=== PATIENT | male | born 1935 | race Caucasian/White ===

== ENCOUNTER 2018-02-21 17:16 | Inpatient (IN) | payer OTHER, MEDICARE ==
[~2018-02-21] VITALS: Ht 175.3 cm; Wt 71.5 kg
--- NOTE | 2018-02-21 17:28 | ED AMS/SEIZURE/WEAK/DIZZY ---
History of Present Illness General Chief Complaint: Altered Mental Status Stated Complaint: BIBA UNRESPONSIVE Source: patient, EMS Exam Limitations: clinical condition Vital Signs & Intake/Output Vital Signs & Intake/Output Vital Signs Date Time Temp Pulse Resp B/P B/P Pulse O2 O2 Flow FiO2 Mean Ox Delivery Rate 02/21 2121 100 Non 10L ReBreather 02/22 2108 98.9 110 22 140/78 02/22 2020 110 103/69 02/21 1945 104 20 111/61 94 Non 100% ReBreather 02/21 1922 98.8 105 22 109/67 90 Nasal 4.0L Cannula 02/22 1920 94 Nasal 3.0L Cannula 02/21 182 103.3 02/21 182 103.3 106 22 115/61 92 Nasal 3.0L Cannula 02/21 172 104.9 02/21 172 92 Non 10L ReBreather 02/22 1720 104.9 118 24 83/51 92 Non 10L ReBreather Triage Nurses Notes Reviewed? 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 The patient is obtunded and unable to give any history. It is unclear when the symptoms began. (Lavern TIERNEY,[facility]) Allergies Coded Allergies: hydrochlorothiazide (UNKNOWN REACTION - PER 02/21/18) Reconcile Medications Acetaminophen 500 MG TABLET 1 TAB PO BID PAIN (Reported) Acetaminophen 325 MG TABLET 2 TAB PO Q4H PRN PAIN/TEMP>100 (Reported) Acetaminophen (Acephen) 650 MG SUPP.RECT 1 SUPP GA Q4H PRN PAIN/TEMP>100 ( Reported) Amlodipine Besylate 5 MG TABLET 1 TAB PO DAILY BP (Reported) Aspirin (Ecotrin*) 81 MG TABLET.DR 1 TAB PO DAILY HEART/BLOOD (Reported) Bisacodyl 10 MG SUPP.RECT 1 SUP RC AD PRN CONSTIPATION (Reported) Docusate Sodium (Colace) 100 MG CAPSULE 1 CAP PO DAILY STOOL SOFTENER ( Reported) Ergocalciferol (Vitamin D2) (Vitamin D2) 50,000 UNIT CAPSULE 1 CAP PO Q30D SUPPLEMENT (Reported) Escitalopram Oxalate (Lexapro) 10 MG TABLET 1 TAB PO DAILY MENTAL HEALTH ( Reported) Escitalopram Oxalate (Lexapro) 5 MG TABLET 1 TAB PO DAILY MENTAL HEALTH ( Reported) Guaifenesin (Liquituss GG) 200 MG/5 ML LIQUID 5 ML PO Q4H PRN COUGH/WHEEZE ( Reported) Ipratropium/Albuterol Sulfate (Iprat-Albut 0.5-3(2.5) MG/3 Ml) 0.5 MG-3 MG (2.5 MG BASE)/3 ML AMPUL.NEB 1 VIAL INH Q4H RESP. (Reported) Ipratropium/Albuterol Sulfate (Iprat-Albut 0.5-3(2.5) MG/3 Ml) 0.5 MG-3 MG (2.5 MG BASE)/3 ML AMPUL.NEB 1 VIAL INH Q6H PRN WHEEZING (Reported) Lactulose 10 GRAM/15 ML SOLUTION 30 ML PO DAILY UNKNOWN (Reported) Lisinopril 10 MG TABLET 1 TAB PO DAILY BP (Reported) Magnesium Hydroxide (Milk Of Magnesia) 400 MG/5 ML ORAL.SUSP 30 ML PO DAILY PRN CONSTIPATION (Reported) Multiple Vitamin (Multivitamins) 1 EACH TABLET 1 TAB PO DAILY SUPPLEMENT ( Reported) Na Phos,M-B/Na Phos,Di-Ba (Fleet Enema) 19 GRAM-7 GRAM/118 ML ENEMA 1 E RC DAILY PRN CONSTIPATION (Reported) Polyvinyl Alcohol (Artificial Tears) 1.4 % DROPS 2 DROP OU DAILY BOTH EYES ( Reported) Simvastatin (Zocor*) 10 MG TABLET 1 TAB PO QPM CHOLESTEROL (Reported) (Kathleen TIERNEY,Enrique) Past History Travel History Traveled to [place] past 21 day No Medical History Any Pertinent Medical History? see below for history Neurological: dementia Cardiovascular: hypertension, hyperlipidemia Gastrointestinal: constipation Psychiatric: depression Cancer(s): SQUAMOUS CELL Tetanus Vaccine: 11/21/15 Surgical History Surgical History: N Psychosocial History What is your primary language Surinamese Family History Hx Contributory? No (Lavern TIERNEY,Enedina) Review of Systems Review of Systems Constitutional: Reports: diaphoresis. Denies: chills, fever. EENTM: Reports: no symptoms. Respiratory: Reports: short of breath. Cardiovascular: Reports: chest pain. GI: Reports: no symptoms. Genitourinary: Reports: no symptoms. Musculoskeletal: Reports: back pain. Skin: Reports: no symptoms. Neurological/Psychological: Reports: no symptoms. Hematologic/Endocrine: Reports: no symptoms. Immunologic/Allergic: Reports: no symptoms. All Other Systems: Reviewed and Negative (Enedina Puckett MD) Physical Exam Physical Exam General Appearance: well developed/nourished, alert, awake, moderate distress, severe distress, obese Head: atraumatic, normal appearance Eyes: Bilateral: PERRL. Ears, Nose, Throat: hearing grossly normal Neck: normal inspection, supple, full range of motion Respiratory: normal breath sounds, chest non-tender, no respiratory distress Cardiovascular: regular rate/rhythm, normal peripheral pulses Peripheral Pulses: 2+ radial (R) Extremities: normal range of motion Neurologic/Psych: no motor/sensory deficits, awake, alert, oriented x 3 Skin: intact, normal color, warm/dry Core Measures ACS in differential dx? Yes CVA/TIA Diagnosis No Sepsis Present: Yes Sepsis Focused Exam Completed? Yes (Enedina Puckett MD) ED Sepsis Exam Date of Focused Sepsis Exam: 02/21/18 Time of Focused Sepsis Exam: 1915 Sepsis Cardiac Exam: Tachycardia Sepsis Resp Exam: CTA Sepsis Cap Refill Exam: >2 sec Sepsis Peripheral Pulse Exam: Weak Sepsis Peripheral Pulse Location: Radial Sepsis Skin Color Exam: Pale Skin Temp/Moisture Exam: Warm/Excessively Dry (Enedina Puckett MD) Progress Differential Diagnosis: AMI, UNSTABLE ANGINA, Plan of Care: Orders Procedure Date/time Status Nothing by Mouth 02/22 B Active CBC WITHOUT DIFFERENTIAL 02/22 0600 Active BASIC ELECTROLYTES PLUS BUN&CR 02/22 06 Active Intake & Output 02/21 2206 Active Patient Data 02/21 2105 Active Code Status 02/21 2041 Active LACTIC ACID 02/21 2031 Complete Admit to inpatient 02/21 1942 Active Sousa, Insertion/Removal/Asses 02/21 191 Active CULTURE,URINE 02/21 191 Active EKG 02/21 1732 Active Telemetry/Fuels Sales Representative 02/21 1731 Active Straight Cath 02/21 1731 Active BLOOD CULTURE 02/21 1731 Active URINALYSIS 02/21 1731 Complete TROPONIN LEVEL 02/21 1731 Complete LACTIC ACID 02/21 1731 Complete COMPREHENSIVE METABOLIC PANEL 02/21 1731 Complete CBC WITHOUT DIFFERENTIAL 02/21 1731 Complete TRC EVALUATION (GEN) 02/21 UNK Active OXYGEN SETUP (GEN) 02/21 UNK Active Vital Signs 02/21 UNK Active Current Medications Sig/Nora Start time Last Medication Dose Stop Time Status Admin Ceftazidime 1,000 MG Q12 02/22 1000 UNVr (Fortaz) Vancomycin HCl 1,000 MG DAILY 02/22 1000 UNir Dextrose/Water 250 ML (D5W) Lactated Ringer's 1,000 ML ONCE ONE 02/21 2215 UNVr (Lactated Ringers) 02/22 1134 Laboratory Tests 02/21/182116: Lactic Acid 2.2 H 02/21/181823: Urinalysis MOD H, Urine Color BROWN H, Urine Clarity TURBD H, Urine pH 5.5, Ur Specific [place] 1.025, Urine Protein 100 H, Urine Ketones TRACE H, Urine Nitrite POS H, Urine Bilirubin NEG@ICTO, Urine Urobilinogen 2.0 H, Ur Leukocyte Esterase LARGE H, Ur Microscopic SEDIMENT EXAMINED, Urine RBC 3-5, Urine WBC > 75 H, Urine Bacteria MANY H, Urine Hemoglobin LARGE H, Urine Glucose NEG 02/21/181819: Anion Gap 15, Estimated GFR 32 L, BUN/Creatinine Ratio 15.5, Glucose 135 H, Lactic Acid 3.4 H, Calcium 8.4, Total Bilirubin 1.5 H, AST 29, ALT 20 L, Alkaline Phosphatase 64, Troponin I 0.69 *H, Total Protein 6.0 L, Albumin 2.9 L, Globulin 3.1, Albumin/Globulin Ratio 0.9 L, CBC w Diff MAN DIFF ORDERED, RBC 4.66 L, MCV 97.3 H, MCH 32.5 H, MCHC 33.5, RDW 16.9 H, MPV 9.4, Gran % 93.9 H, Lymphocytes % 3.0 L, Monocytes % 3.1, Eosinophils % 0, Basophils % 0, Absolute Granulocytes 27.7 H, Segmented Neutrophils 90 H, Band Neutrophils 2, Absolute Lymphocytes 0.9 L, Lymphocytes 5 L, Monocytes 3, Absolute Monocytes 0.9 H, Absolute Eosinophils 0, Absolute Basophils 0, Platelet Estimate ADEQUATE , Anisocytosis 1+ Microbiology 02/21 1917 URINE ROUT: Urine Culture - ORD 02/21 183 BLOOD: Blood Culture - RECD 02/22 1820 BLOOD: Blood Culture - RECD CODE STATUS and wishes discussed with the POA who is the patient's brother. At this point the brother is okay with IV fluids and antibiotics and pressors as needed. I informed him that we would call him should we need pressors or anything further. XANDER BROTHER - CELL [phone] Diagnostic Imaging: Viewed by Me: Radiology Read, CT Scan. Discussed w/RAD: Radiology Read, CT Scan. CXR Impression: PATIENT: TYE HUTCHINS PRESENT AGE: 82 PATIENT ACCOUNT NO: [id number] : 36 LOCATION: [facility] ORDERING PHYSICIAN: Enedina Puckett MD SERVICE DATE: 02/21/18 EXAM TYPE: RAD - XRY -PORTABLE CHEST XRAY EXAMINATION: XR PORTABLE CHEST CLINICAL INFORMATION: Fever. COMPARISON: 01/15/2009 TECHNIQUE: Portable frontal view of the chest was obtained. FINDINGS: No significant abnormality is noted involving the heart, lungs, mediastinum, bony thorax or soft tissues. IMPRESSION: No active chest disease. DICTATED BY: David Castro MD DATE/TIME DICTATED:02/21/181824 NURSING STUDENT:JULIANNA DATE/TIME TRANSCRIBED:02/21/181824 CONFIDENTIAL, DO NOT COPY WITHOUT APPROPRIATE AUTHORIZATION. <Electronically signed in Other Vendor System> SIGNED BY: David Castro MD 02/21/181828 Initial ED EKG: RBBB, LAFB Rhythm Strip: sinus tachycardia Hand-Off Endorsed To: Enrique Wang MD Endorsed Time: 1913 Pending: CT (AND ADMISSION) (Enedina Puckett MD) Radiology Impression: Bibasilar extensive pneumonitis partially imaged. Nonobstructing bilateral renal calculi. High density metallic focus within the cecum as above. Correlate with surgical history. Multiple lesions within both renal cortices some which may be cystic. Recommend elective ultrasound. Comments: Discussed with brother Xander diagnosis, prognosis. He reports his brother has no quality of life with illness, dementia. No intubation, pressors, CPR. IVF, antibiotics, supplemental oxygen and supportive care for comfort. (Enrique Wang MD) Departure Departure Disposition: STILL A PATIENT Condition: Stable Referrals: Nelly Zimmerman MD (PCP/Family) Departure Forms: Customer Survey General Discharge Information (Enedina Puckett MD) Departure Time of Disposition: 2005 Clinical Impression Primary Impression: Sepsis Secondary Impressions: Hypernatremia, Lactic acidosis, Pneumonia, UTI (urinary tract infection) Admission Note Spoke With: Mayra Delaney MD Documentation of Exam: Documentation of any treatments & extenuating circumstances including Concerns Regarding Discharge (functional status, medication knowledge or non-compliance, living conditions, etc.) that warrant an admission rather than observation: supplemental oxygen IV Fluids serial lab exam follow cultures IV antibiotics continuing care discharge planning (Enrique Wang MD) Critical Care Note Critical Care Note Critical Care Time: 30-74 min (45) (Enrique Wang MD)
--- NOTE | 2018-02-21 18:29 | RADIOLOGY REPORT ---
EXAMINATION: XR PORTABLE CHEST CLINICAL INFORMATION: Fever. COMPARISON: 01/15/2009 TECHNIQUE: Portable frontal view of the chest was obtained. FINDINGS: No significant abnormality is noted involving the heart, lungs, mediastinum, bony thorax or soft tissues. IMPRESSION: No active chest disease.
[2018-02-21 18:36] LABS: ABSOLUTE BASOPHIL COUNT 0 /CUMM (0.0-0.2); ABSOLUTE EOSINOPHIL COUNT 0 /CUMM (0.0-0.7); ABSOLUTE GRANULOCYTE CT 27.7 /CUMM (1.4-6.5); ABSOLUTE LYMPH COUNT 0.9 /CUMM (1.2-3.4); ABSOLUTE MONOCYTE COUNT 0.9 /CUMM (0.10-0.60); BASOPHIL % 0 % (0.0-2.0); EOSINOPHIL % 0 % (0-5); GRANULOCYTE % 93.9 % (42.2-75.2); HEMATOCRIT 45.4 % (42-52); MEAN CORPUSCULAR HGB 32.5 PG (27.0-31.0); MEAN CORPUSCULAR HGB CONC 33.5 G/DL (33.0-37.0); MEAN CORPUSCULAR VOLUME 97.3 FL (80.0-94.0); MEAN PLATELET VOLUME 9.4 FL (7.4-10.4); PLATELET COUNT 301 /CUMM (130-400); RBC DISTRIBUTION WIDTH 16.9 % (11.5-14.5); RED BLOOD CELL CT 4.66 /CUMM (4.70-6.10)
[2018-02-21 18:37] LABS: WHITE BLOOD CELL COUNT 29.5 /CUMM (4.8-10.8)
[2018-02-21] MEDS ORDERED: AMLODIPINE BESYL5 M1 PO (19:27)
[2018-02-21] MEDS ORDERED: VITAMIN D250000 UNIT PO (19:27)
[2018-02-21] MEDS ORDERED: COLACE100 M1 PO (19:28)
[2018-02-21] MEDS ORDERED: ASPIRIN EC81 M1 PO (19:28)
[2018-02-21] MEDS ORDERED: LEXAPRO10 M1 PO (19:28)
[2018-02-21] MEDS ORDERED: LEXAPRO5 M1 PO (19:31)
[2018-02-21] MEDS ORDERED: LACTULOSE10 GM/152 PO (19:33)
[2018-02-21] MEDS ORDERED: LISINOPRIL10 M1 PO (19:36)
[2018-02-21] MEDS ORDERED: MULTIVITAMINS1 EAC9 PO (19:37)
[2018-02-21] MEDS ORDERED: ARTIFICIAL TEAR15 M8 OU (19:38)
--- NOTE | 2018-02-21 19:39 | CT SCAN REPORT ---
EXAMINATION: CT ABDOMEN AND PELVIS WITHOUT CONTRAST CLINICAL INFORMATION: Fever. Sepsis. COMPARISON: None TECHNIQUE: Multidetector volumetric imaging was performed from the superior aspect of the liver through the pubic symphysis. Sagittal and coronal reformatted images were obtained on the technologist's workstation. DLP: 769 mGy-cm FINDINGS: LUNG BASES: Extensive consolidation right greater than left at the lung bases consistent pneumonitis. No parapneumonic effusion. Severe coronary atherosclerosis. LIVER, GALLBLADDER, AND BILIARY TREE: The liver is normal in size, shape, and attenuation. No focal hepatic lesion or biliary ductal dilatation is present. The gallbladder is unremarkable with no evidence of radiopaque gallstones, gallbladder wall thickening, or obvious pericholecystic inflammatory changes. PANCREAS: Unremarkable. SPLEEN: Granuloma granuloma noted. ADRENAL GLANDS: Unremarkable. KIDNEYS AND URETERS: There is a minimally obstructing stone within the right renal pelvis measuring approximately 9 mm. Multiple calyceal stone in the left which is nonobstructive enlarged measuring up to 8 mm lower pole calyx. There are multiple rounded lesions within both renal cortices. These appear to be cystic some of them are too small to characterize. Recommend elective ultrasound for further characterization. No perinephric abnormality. BLADDER: Sousa catheter in place decompressing the bladder. GASTROINTESTINAL TRACT: High density within the cecum consistent with previous probable surgery. Correlate with surgical history. Foreign body less likely.. No acute inflammatory changes. No free air. ABDOMINAL WALL: No significant hernia is appreciated. LYMPH NODES: Normal. VASCULAR: Unremarkable. PELVIC VISCERA: Unremarkable. OSSEOUS STRUCTURES: Unremarkable. IMPRESSION: Bibasilar extensive pneumonitis partially imaged. Nonobstructing bilateral renal calculi. High density metallic focus within the cecum as above. Correlate with surgical history. Multiple lesions within both renal cortices some which may be cystic. Recommend elective ultrasound.
[2018-02-21] MEDS ORDERED: ACETAMINOPHEN500 M4 PO (19:41)
[2018-02-21] MEDS ORDERED: ZOCOR10 M1 PO (19:43)
[2018-02-21] MEDS ORDERED: IPRAT-ALBUT 0.5-3 ML INH ×2 (19:43→19:49)
[2018-02-21] MEDS ORDERED: MILK OF MA400 MG/52 PO (19:46)
[2018-02-21] MEDS ORDERED: BISACODYL10 M1 RC (19:47)
[2018-02-21] MEDS ORDERED: FLEET ENEMA133 ML RC (19:48)
[2018-02-21] MEDS ORDERED: ACETAMINOPHEN325 M2 PO (19:51)
[2018-02-21] MEDS ORDERED: ACEPHEN650 M1 PR (19:52)
[2018-02-21] MEDS ORDERED: LIQUITUSS200 MG/5 M PO (19:53)
--- NOTE | 2018-02-21 20:41 | History & Physical ---
Mick TIERNEY,Blaine 02/21/182039: General Information and HPI MD Statement: I have seen and personally examined TYE HUTCHINS and documented this H&P. The patient is a 82 year old M who presented with a patient stated chief complaint of [fever, unresponsiveness, hypotension]. Source of Information: family, old records Exam Limitations: unable to give history History of Present Illness: Patient is an 82-year-old male with a PMH significant for B-cell lymphoma, HTN, dementia, depression, anxiety, HLD, chest wall mass recently excised approximately 2 weeks ago with sutures still in place diagnosis unknown who was brought in by ambulance from [place] after being found to be febrile, hypotensive and nonresponsive. History was obtained by patient's brother, who is the POA, at bedside. Approximately one week ago patient was noted to be febrile was diagnosed with pneumonia. Since that time the brother reports that she did not follow-up and he is unaware of what treatment he received. Today and nurse noted that the patient was febrile, unresponsive to verbal stimuli and hypotensive at which point the scope. Review systems is unobtainable as patient was unarousable Allergies/Medications Allergies: Coded Allergies: hydrochlorothiazide (UNKNOWN REACTION - PER 02/21/18) Home Med list Acetaminophen 500 MG TABLET 1 TAB PO BID PAIN (Reported) Acetaminophen 325 MG TABLET 2 TAB PO Q4H PRN PAIN/TEMP>100 (Reported) Acetaminophen (Acephen) 650 MG SUPP.RECT 1 SUPP OR Q4H PRN PAIN/TEMP>100 ( Reported) Amlodipine Besylate 5 MG TABLET 1 TAB PO DAILY BP (Reported) Aspirin (Ecotrin*) 81 MG TABLET.DR 1 TAB PO DAILY HEART/BLOOD (Reported) Bisacodyl 10 MG SUPP.RECT 1 SUP RC AD PRN CONSTIPATION (Reported) Docusate Sodium (Colace) 100 MG CAPSULE 1 CAP PO DAILY STOOL SOFTENER ( Reported) Ergocalciferol (Vitamin D2) (Vitamin D2) 50,000 UNIT CAPSULE 1 CAP PO Q30D SUPPLEMENT (Reported) Escitalopram Oxalate (Lexapro) 10 MG TABLET 1 TAB PO DAILY MENTAL HEALTH ( Reported) Escitalopram Oxalate (Lexapro) 5 MG TABLET 1 TAB PO DAILY MENTAL HEALTH ( Reported) Guaifenesin (Liquituss GG) 200 MG/5 ML LIQUID 5 ML PO Q4H PRN COUGH/WHEEZE ( Reported) Ipratropium/Albuterol Sulfate (Iprat-Albut 0.5-3(2.5) MG/3 Ml) 0.5 MG-3 MG (2.5 MG BASE)/3 ML AMPUL.NEB 1 VIAL INH Q4H RESP. (Reported) Ipratropium/Albuterol Sulfate (Iprat-Albut 0.5-3(2.5) MG/3 Ml) 0.5 MG-3 MG (2.5 MG BASE)/3 ML AMPUL.NEB 1 VIAL INH Q6H PRN WHEEZING (Reported) Lactulose 10 GRAM/15 ML SOLUTION 30 ML PO DAILY UNKNOWN (Reported) Lisinopril 10 MG TABLET 1 TAB PO DAILY BP (Reported) Magnesium Hydroxide (Milk Of Magnesia) 400 MG/5 ML ORAL.SUSP 30 ML PO DAILY PRN CONSTIPATION (Reported) Multiple Vitamin (Multivitamins) 1 EACH TABLET 1 TAB PO DAILY SUPPLEMENT ( Reported) Na Phos,M-B/Na Phos,Di-Ba (Fleet Enema) 19 GRAM-7 GRAM/118 ML ENEMA 1 E RC DAILY PRN CONSTIPATION (Reported) Polyvinyl Alcohol (Artificial Tears) 1.4 % DROPS 2 DROP OU DAILY BOTH EYES ( Reported) Simvastatin (Zocor*) 10 MG TABLET 1 TAB PO QPM CHOLESTEROL (Reported) Past History Travel History Traveled to [place] past 21 day No Medical History Neurological: dementia Cardiovascular: hypertension, hyperlipidemia Gastrointestinal: constipation Psychiatric: depression Cancer(s): SQUAMOUS CELL, B cell lymphoma Tetanus Vaccine: 11/21/15 Surgical History Surgical History: N Past Family/Social History Family History Relations & Conditions if any Relation not specified for: *No pertinent family history Psychosocial History Where do you live? Extended [facility] Facility Power of Water/Wastewater Project Engineer/HCP? yes Functional Ability ADLs Needs Assist: dressing, eating, toileting, bathing. Review of Systems Review of Systems Constitutional: Reports: see HPI. Exam & Diagnostic Data Last 24 Hrs of Vital Signs/I&O Vital Signs Date Time Temp Pulse Resp B/P B/P Pulse O2 O2 Flow FiO2 Mean Ox Delivery Rate 02/22 2328 96.9 104 24 142/60 94 Non ReBreather 02/21 2121 100 Non 10L ReBreather 02/22 2108 98.9 110 22 140/78 02/22 2020 110 103/69 02/21 1945 104 20 111/61 94 Non 100% ReBreather 02/21 1922 98.8 105 22 109/67 90 Nasal 4.0L Cannula 02/22 1920 94 Nasal 3.0L Cannula 02/22 1820 103.3 02/22 1820 103.3 106 22 115/61 92 Nasal 3.0L Cannula 02/22 1720 104.9 02/22 1720 92 Non 10L ReBreather 02/22 1720 104.9 118 24 83/51 92 Non 10L ReBreather Physical Exam General Appearance No Acute Distress Skin Temp/Moisture Exam: Cool/Diaphoretic Sepsis Skin Exam (color): Pale HEENT Atraumatic Cardiovascular Normal S1, Normal S2, linear procedural wound with sutures in place on upper L chest, tachycardic Lungs diffuse rhonchi Abdomen Normal Bowel Sounds, Soft Extremities No Clubbing, No Cyanosis, No Edema Vascular poor distal pulses of LEs, 2+ radial pulses Sepsis Peripheral Pulse Location: Radial Sepsis Peripheral Pulse Exam: Weak Sepsis Cap Refill Exam: <2 Sec Last 24 Hrs of Labs/Jamie: Laboratory Tests 02/21/182116: Lactic Acid 2.2 H 02/21/181823: Urinalysis MOD H, Urine Color BROWN H, Urine Clarity TURBD H, Urine pH 5.5, Ur Specific [place] 1.025, Urine Protein 100 H, Urine Ketones TRACE H, Urine Nitrite POS H, Urine Bilirubin NEG@ICTO, Urine Urobilinogen 2.0 H, Ur Leukocyte Esterase LARGE H, Ur Microscopic SEDIMENT EXAMINED, Urine RBC 3-5, Urine WBC > 75 H, Urine Bacteria MANY H, Urine Hemoglobin LARGE H, Urine Glucose NEG 02/21/181819: Anion Gap 15, Estimated GFR 32 L, BUN/Creatinine Ratio 15.5, Glucose 135 H, Lactic Acid 3.4 H, Calcium 8.4, Total Bilirubin 1.5 H, AST 29, ALT 20 L, Alkaline Phosphatase 64, Troponin I 0.69 *H, Total Protein 6.0 L, Albumin 2.9 L, Globulin 3.1, Albumin/Globulin Ratio 0.9 L, CBC w Diff MAN DIFF ORDERED, RBC 4.66 L, MCV 97.3 H, MCH 32.5 H, MCHC 33.5, RDW 16.9 H, MPV 9.4, Gran % 93.9 H, Lymphocytes % 3.0 L, Monocytes % 3.1, Eosinophils % 0, Basophils % 0, Absolute Granulocytes 27.7 H, Segmented Neutrophils 90 H, Band Neutrophils 2, Absolute Lymphocytes 0.9 L, Lymphocytes 5 L, Monocytes 3, Absolute Monocytes 0.9 H, Absolute Eosinophils 0, Absolute Basophils 0, Platelet Estimate ADEQUATE , Anisocytosis 1+ Microbiology 02/21 1917 URINE ROUT: Urine Culture - ORD 02/22 1836 BLOOD: Blood Culture - RECD 02/22 1820 BLOOD: Blood Culture - RECD Diagnostic Data EKG Results Sinus tachycardia with new RBBB and LAFB, HR [address]-T changes CXR Results FINDINGS: No significant abnormality is noted involving the heart, lungs, mediastinum, bony thorax or soft tissues. IMPRESSION: No active chest disease. Other Results CT abd/pelvis w/o IV contrast LUNG BASES: Extensive consolidation right greater than left at the lung bases consistent pneumonitis. No parapneumonic effusion. Severe coronary atherosclerosis. LIVER, GALLBLADDER, AND BILIARY TREE: The liver is normal in size, shape, and attenuation. No focal hepatic lesion or biliary ductal dilatation is present. The gallbladder is unremarkable with no evidence of radiopaque gallstones, gallbladder wall thickening, or obvious pericholecystic inflammatory changes. PANCREAS: Unremarkable. SPLEEN: Granuloma granuloma noted. ADRENAL GLANDS: Unremarkable. KIDNEYS AND URETERS: There is a minimally obstructing stone within the right renal pelvis measuring approximately 9 mm. Multiple calyceal stone in the left which is nonobstructive enlarged measuring up to 8 mm lower pole calyx. There are multiple rounded lesions within both renal cortices. These appear to be cystic some of them are too small to characterize. Recommend elective ultrasound for further characterization. No perinephric abnormality. BLADDER: Sousa catheter in place decompressing the bladder. GASTROINTESTINAL TRACT: High density within the cecum consistent with previous probable surgery. Correlate with surgical history. Foreign body less likely.. No acute inflammatory changes. No free air. ABDOMINAL WALL: No significant hernia is appreciated. LYMPH NODES: Normal. VASCULAR: Unremarkable. PELVIC VISCERA: Unremarkable. OSSEOUS STRUCTURES: Unremarkable. IMPRESSION: Bibasilar extensive pneumonitis partially imaged. Nonobstructing bilateral renal calculi. High density metallic focus within the cecum as above. Correlate with surgical history. Multiple lesions within both renal cortices some which may be cystic. Recommend elective ultrasound. Assessment/Plan Assessment: Patient is an 82-year-old male with a PMH significant for B-cell lymphoma, HTN, dementia, depression, anxiety, HLD, chest wall mass recently excised approximately 2 weeks ago with sutures still in place diagnosis unknown who was brought in by ambulance from [place] after being found to be febrile, hypotensive and nonresponsive. A detailed discussion was had at bedside with the patient's brother/POA about goals of care, and it was decided that for now the patient will be comfort measures only, with further discussion in the morning about hospice. He agreed to begin treatment with IV antibiotics and IV fluids however does not want aggressive measures such as central line placement, pressors. VS on admission: T1 04.9, P118, RR 24, BP 83/51, pulse ox 92% on 10 L nonrebreather mask Labs significant for leukocytosis with bandemia, hypernatremia, hyperchloremia, elevated BUN/creatinine, lactic acidosis, elevated T bili, low protein, albumin, elevated troponin, UA indicative of UTI Problem list #Sepsis secondary to urologic origin or possible pneumonia #Elevated troponins, demand ischemia versus FL #Hypernatremia, possibly secondary to volume depletion #CHARISSE, annelise prerenal azotemia #Chronic medical problems Plan -Admit to telemetry -Comfort measures only -Continue IV vancomycin and Ceftazidime -Follow-up blood and urine cultures -Discussion with family in a.m. 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 Sepsis 2. Pneumonia 3. Lactic acidosis 4. UTI (urinary tract infection) 5. Hypernatremia Core Measures/Misc (08/13) Acute Coronary Syndrome ACS Diagnosis: No Congestive Heart Failure Congestive Heart Failure Diagnosis No Cerebrovascular Accident CVA/TIA Diagnosis: No VTE (View Protocol) VTE Risk Factors Age>40 No Mechanical VTE Prophylaxis d/t N/A MechProphylax Ordered No VTE Pharm Prophylaxis d/t Other (patient is comfort measures) Sepsis (View protocol) Sepsis Present: Yes Amando Reese 02/21/18 2258: Resident Review Statement Resident Statement: examined this patient, discussed with process engineering intern, agreed with process engineering intern, discussed with family, reviewed EMR data (avail), reviewed images Other Findings: 82 year old nonverbal, nonambulatory gentleman [facility] significant for hypertension, severe dementia, 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 Sent from facility for high-grade temperature and low blood pressure. History was obtained from his Brother who is his conservator and from nursing staff at [place]. Apparently patient was treated for pneumonia about one week ago. Unable to obtain review of systems. Apparently about 2 weeks ago patient had ?excisional biopsy of the chest wall mass. Sutures in left upper chest noted with minimal discharge. Vitals MAXIMUM TEMPERATURE 104.9, heart rate 110-118, blood pressure 83/51-->140 /78 Examination as above. Labs significant for WBC 29.5 left shift with bandemia of 2, sodium 156, potassium 3.5, chloride 119, bicarbonate 22, anion gap 15, BUN 31, creatinine 2.0, T bili 1.5, AST 29 ALT 20, ALP 64, troponin 0.69, lactic acid 3.4-->2.2 Chest x-ray: No significant abnormality is noted involving the heart, lungs, mediastinum, bony thorax or soft tissues. CT abdomen and pelvis: Bibasilar extensive pneumonitis partially imaged.Nonobstructing bilateral renal calculi.High density metallic focus within the cecum as above. Correlate with surgical history.Multiple lesions within both renal cortices some which may be cystic. Assessment: Sepsis secondary to HCAP with positive trop likely secondary to type II demand ischemia. CHARISSE in the setting of dehydration Problem list: Sepsis Acute hypoxic respiratory failure Positive troponin hypernatremia CHARISSE Plan: Admit to general medicine floor, vitals per protocol Keep nothing by mouth, Ringer lactate at 75 mL currently on nonrebreather As he is comfort measures will not trend troponin EKG or lactic acid Follow-up CBC and BEP in the morning Extensive discussion with conservator Xander Pena who is his brother [phone number [phone]]. At this time family does not wish any aggressive measures including,intubation chest compressions, central lines or any surgical intervention. They would like to treat with IV antibiotics for now. Would like to keep him comfort measures with hospice consult in the morning. Continue with vancomycin and ceftriaxone We'll hold his antihypertensives, DVT prophylaxis: Alps CODE STATUS :Comfort measures Mayra Delaney 02/22/18 0027: Attending MD Review Statement Attending Statement Attending MD Statement: examined this patient, discuss w/resident/PA/DESIZING MACHINE OPERATOR HEAD END, agreed w/resident/PA/DESIZING MACHINE OPERATOR HEAD END, reviewed EMR data (avail), reviewed images, amended to note Attending Assessment/Plan: CC: Altered mental status PMH: Dementia, major depression, HTN, diffuse B-cell lymphoma, dysphagia, recent skin biopsy for suspected skin cancer History is obtained from patient's chart, alf, patient's conservator. Patient is nonverbal and nonambulatory at baseline, resident of [facility]. According to the facility patient was found unresponsive at the change of shift. Patient was being treated with antibiotics for suspected pneumonia at the facility diagnosed on x-ray. Patient was hypotensive and tachycardic when he was up-to- date in ECF. No other history is available. Vitals: Rectal temperature 104.9, pulse 118, RR 24, blood pressure 83/51 upon arrival improved to 115/61, saturating 92% on 10 L nasal cannula. On exam: Arousable, opens eyes after calling his name but does not follow any instructions, cooperative, moderate respiratory distress, neck supple, JVD normal, no lymphadenopathy, mucosa dry, stiff and contracted upper extremity and lower extremities, limited neuro exam, no dependent edema, mild blanching on sacral area otherwise no ulcers, patient has sutures on left anterior chest with punctated pus discharge on squeezing. No surrounding erythema, and patient does not grimace on deep palpation CVS: S1-S2, RRR. RS: Bilateral extensive rhonchi. Abdomen: Soft, NT, ND, bowel sounds present. Lower extremities are cold, pulses palpable CXR: No active chest disease. Abdomen and pelvis CT without IV contrast: Bibasilar extensive pneumonitis partially imaged. Nonobstructing bilateral renal calculi. High density metallic focus within the cecum as above. Correlate with surgical history. Multiple lesions within both renal cortices some which may be cystic. Recommend elective ultrasound. Assessment and plan 82 year old male resident of alf, nonverbal and nonambulatory at baseline, and multiple comorbidities as mentioned above presented in ER after found obtunded at change of shift. According to alf and patient's conservator patient had fever and was diagnosed to have pneumonia on x-ray and was on antibiotics but today at change of shift he was found obtunded hypotensive and tachycardic. Upon arrival in ER he had fever of 104.9 (rectal temperature), significantly tachycardic, tachypneic, hypotensive and requiring 10 L nasal cannula to saturate around 90%. He has extensive coarse rhonchi bilateral lung marks, significant dehydration on examination, peripheral pulses are decreased with cold extremities. He also has sutures on left anterior chest wall, I couldn't express small pus from one of the sutures, according to alf he underwent skin biopsy recently results are awaited. He has significant leukocytosis with left shift, hyponatremia, mild acidosis with elevated creatinine and elevated troponin with lactic acid of 3.4. UA is positive for nitrites and leukocyte esterase. CT abdomen and pelvis confirms the finding of mildly obstructing stone on the right renal pelvis and by basilar pneumonia. Patient has history of dysphagia and this could be aspiration related but given that significant fever, leukocytosis and healthcare contact patient needs broad- spectrum antibiotic for suspected urinary infection as well as pneumonia and possible sutures infection. Goals of care were discussed with patient's conservator at length by house staff. They do not want any aggressive measures, any procedures, central line, patient is DNR and DNI and they want comfort measures only, at this point the would want to continue with IV antibiotics and IV hydration but are open to discuss hospice care. To avoid any further poking and prodding we will not obtain any further troponins and lactic acid. We will continue hydration, antibiotics, repeat labs in a.m. and reassess him. Patient does not have any significant pressure ulcers, Sousa was placed in ER. + Severe sepsis secondary to UTI and pneumonia + UTI + Bi-basilar pneumonia + Acute respiratory failure + Hyponatremia + Acute kidney injury + NSTEMI secondary to demand + History of Dementia, major depression, HTN, diffuse B-cell lymphoma, dysphagia , recent skin biopsy for suspected skin cancer - Admit to inpatient general medicine - Continue gentle hydration with normal saline or fingers lactate - Continue IV vancomycin and Ceftazidime - TRC nebs - Continue nonrebreather - When necessary morphine for severe respiratory distress or grimace - If patient is not clinically improving then may need hospice evaluation in a.m. - DNR/DNI - Nothing by mouth for now
[2018-02-21 23:28] VITALS: BP 142/60
--- NOTE | 2018-02-22 00:29 | Admission Certification ---
Admission Certification Certification Statement - As attending physician, I certify that at the time of - admission, based on clinical presentation, severity of - symptoms, need for further diagnostic testing and - therapeutic interventions, and risk of adverse outcomes - without in-hospital treatment, in my clinical assessment, - this patient requires an acute hospital stay for a minimum - of two nights or longer. I have also considered psychsocial - factors such as support system, advanced age, financial - issues, cognitive issues, and failed out-patient treatments, - past re-admission history, safety of patient, and lack of - compliance as applicable. Specific rationale supporting this admission is: Severe sepsis with pneumonia, UTI and possible suture infection, Comfort measures.
[2018-02-22 06:57] VITALS: BP 94/60
--- NOTE | 2018-02-22 07:45 | PN- Housestaff ---
See Addendum Subjective Follow-up For: Severe sepsis secondary to UTI and pneumonia Acute respiratory failure Hypernatremia, possibly secondary to volume depletion Acute kidney injury NSTEMI secondary to demand Subjective: Nonverbal at baseline. Patient's brother called to inform medial team he will be in some time today for goals of care discussion. Review of Systems Constitutional: Reports: see HPI. Objective Last 24 Hrs of Vital Signs/I&O Vital Signs Date Time Temp Pulse Resp B/P B/P Pulse O2 O2 Flow FiO2 Mean Ox Delivery Rate 02/22 0657 100.4 96 28 94/60 95 Non ReBreather 02/22 0017 95 Non 100% ReBreather 02/22 0000 Non 100% ReBreather 02/21 2328 96.9 104 24 142/60 94 Non ReBreather 02/21 2121 100 Non 10L ReBreather 02/218 98.9 110 22 140/78 02/22 2020 110 103/69 02/21 1945 104 20 111/61 94 Non 100% ReBreather 02/21 192 98.8 105 22 109/67 90 Nasal 4.0L Cannula 02/21 1920 94 Nasal 3.0L Cannula 02/21 1820 103.3 02/21 1820 103.3 106 22 115/61 92 Nasal 3.0L Cannula 02/21 1720 104.9 02/21 1720 92 Non 10L ReBreather 02/21 1720 104.9 118 24 83/51 92 Non 10L ReBreather Intake & Output 02/22 1600 02/22 0800 02/22 0000 Intake Total 600 4400 Output Total 230 Balance 600 4170 Intake, IV 600 4400 Output, Urine 230 Patient 180 lb 180 lb Weight Weight Bed scale Estimated Measurement Method Physical Exam General Appearance: Lethargic, unable to assess orientation Skin: L side chest sutures with dressing intact, Diffused scaly whitish lesions Cardiovascular: Regular Rate, Normal S1, Normal S2, No Murmurs Abdomen: Normal Bowel Sounds, Soft, No Tenderness Current Medications: Current Medications Sig/Nora Start time Last Medication Dose Route Stop Time Status Admin Acetaminophen 650 MG Q4H PRN 02/21 2345 AC NC Acetaminophen 650 MG ONCE ONE 02/21 1745 DC 02/21 NC 02/21 1746 1720 Acetaminophen 0 .STK-MED ONE 02/21 173 DC NC Artificial Tears 2 GTT 4 TIMES/DAY 02/22 1000 AC OPH Ceftazidime 1,000 MG Q24 02/22 1000 AC IV Ceftazidime 0 .STK-MED ONE 02/21 1847 DC .ROUTE Ceftazidime 1,000 MG ONCE ONE 02/21 1830 DC 02/21 IV 02/21 1831 1856 Ipratropium [place] 2.5 ML Q4 HRS NEEDED PRN 02/21 2345 AC INH Lactated Ringer's 1,000 ML ONCE ONE 02/21 2215 AC 02/22 IV 02/22 1134 0007 Morphine Sulfate 2 MG Q6-PRN PRN 02/22 0445 AC 02/22 IV 0545 Sodium Chloride 1,000 ML BOLUS ONE 02/21 1945 DC 02/21 IV 02/21 2044 1945 Sodium Chloride 1,000 ML BOLUS ONE 02/21 1900 DC 02/21 IV 02/21 1959 1915 Sodium Chloride 1,000 ML BOLUS ONE 02/21 1745 DC 02/21 IV 02/21 1844 1718 Sodium Chloride 1,000 ML BOLUS ONE 02/21 1745 DC 02/21 IV 02/21 1844 1830 Vancomycin HCl 1,000 MG DAILY 02/22 1000 AC Dextrose/Water 250 ML IV Vancomycin HCl 0 .STK-MED ONE 02/21 1847 DC .ROUTE Vancomycin HCl 1,000 MG ONCE ONE 02/21 1830 DC 02/21 Dextrose/Water 250 ML IV 02/21 1929 1856 Last 24 Hrs of Lab/Jamie Results Last 24 Hrs of Labs/Mics: Laboratory Tests 02/22/18 0600: Sodium Cancelled, Potassium Cancelled, Chloride Cancelled, Carbon Dioxide Cancelled, Anion Gap Cancelled, BUN Cancelled, Creatinine Cancelled, BUN/ Creatinine Ratio Cancelled, CBC w Diff Cancelled, WBC Cancelled, RBC Cancelled, Hgb Cancelled, Hct Cancelled, MCV Cancelled, MCH Cancelled, MCHC Cancelled, RDW Cancelled, Plt Count Cancelled, MPV Cancelled 02/21/187: Lactic Acid 2.2 H 02/21/18 1824: Urinalysis MOD H, Urine Color BROWN H, Urine Clarity TURBD H, Urine pH 5.5, Ur Specific [place] 1.025, Urine Protein 100 H, Urine Ketones TRACE H, Urine Nitrite POS H, Urine Bilirubin NEG@ICTO, Urine Urobilinogen 2.0 H, Ur Leukocyte Esterase LARGE H, Ur Microscopic SEDIMENT EXAMINED, Urine RBC 3-5, Urine WBC > 75 H, Urine Bacteria MANY H, Urine Hemoglobin LARGE H, Urine Glucose NEG 02/21/181819: Anion Gap 15, Estimated GFR 32 L, BUN/Creatinine Ratio 15.5, Glucose 135 H, Lactic Acid 3.4 H, Calcium 8.4, Total Bilirubin 1.5 H, AST 29, ALT 20 L, Alkaline Phosphatase 64, Troponin I 0.69 *H, Total Protein 6.0 L, Albumin 2.9 L, Globulin 3.1, Albumin/Globulin Ratio 0.9 L, CBC w Diff MAN DIFF ORDERED, RBC 4.66 L, MCV 97.3 H, MCH 32.5 H, MCHC 33.5, RDW 16.9 H, MPV 9.4, Gran % 93.9 H, Lymphocytes % 3.0 L, Monocytes % 3.1, Eosinophils % 0, Basophils % 0, Absolute Granulocytes 27.7 H, Segmented Neutrophils 90 H, Band Neutrophils 2, Absolute Lymphocytes 0.9 L, Lymphocytes 5 L, Monocytes 3, Absolute Monocytes 0.9 H, Absolute Eosinophils 0, Absolute Basophils 0, Platelet Estimate ADEQUATE , Anisocytosis 1+ Microbiology 02/21 1917 URINE ROUT: Urine Culture - COLB 02/22 1836 BLOOD: Blood Culture - RECD 02/22 1820 BLOOD: Blood Culture - RECD Assessment/Plan Assessment: Mr. Rios is an 82-year-old male with a PMH significant for B-cell lymphoma , HTN, dementia, depression, anxiety, HLD, chest wall mass recently excised approximately 2 weeks ago with sutures still in place diagnosis unknown who was brought in by ambulance from [place] after being found to be febrile, hypotensive and nonresponsive. Problem list Sepsis secondary to urologic origin or possible pneumonia Elevated troponins, demand ischemia Hypernatremia, possibly secondary to volume depletion CHARISSE, likely prerenal azotemia Acute respiratory failure Plan: Comfort measures only Continue IV vancomycin and Ceftazidime Discontinue LR Start D5W IVF for hypernatremia DVT ppx: ALPS Problem List: 1. Pneumonia 2. UTI (urinary tract infection) 3. Hypernatremia 4. Sepsis Pain Ratin Pain Location: NA Pain Goal: Remain pain free Pain Plan: NA Tomorrow's Labs & Rationales: none
--- NOTE | 2018-02-22 13:41 | Event Note ---
Event Note Event Note: S: Medical team had a long discussion regarding goals of care with patient family (2 younger brothers). They do not want any aggressive measures, any procedures, central line, they want comfort measures only. Hospice was discussed at length, however patients family wants to wait another 24-48 hrs before making that decision. Since they saw some improvement in clinical status this morning. B: Mr. Rios is an 82-year-old male with a PMH significant for B-cell lymphoma, HTN, dementia, depression, anxiety, HLD, chest wall mass recently excised approximately 2 weeks ago with sutures still in place diagnosis unknown who was brought in by ambulance from [place] after being found to be febrile, hypotensive and nonresponsive. Goals of care were discussed with patient's POA at length on admission. They do not want any aggressive measures, any procedures , central line, patient was DNR and DNI changed to comfort measures only. A/R: At this pont we will continue IV antibiotics and IV hydration but no blood draws or any aggressive measures. If clinical symptoms deteriorate, patient brother Xander [phone] should be contacted and further plan of care discussed. Option of hospice will be considered at that time. * Continue IV antibiotics for PNA * Continue IV D5W for hypernatremia * Will reasses in 24 hours for clinical improvement * Update family if any changes in clinical status Will reasses in 24 hours for clinical improvement
[2018-02-22 14:28] VITALS: BP 137/75
[2018-02-22 22:18] VITALS: BP 110/60
[2018-02-23 06:00] VITALS: BP 126/80
--- NOTE | 2018-02-23 07:09 | PN- Housestaff ---
Calvin Aldridge 02/23/18 0709: Subjective Follow-up For: Severe sepsis secondary to UTI and pneumonia Acute respiratory failure Hypernatremia, possibly secondary to volume depletion Acute kidney injury NSTEMI secondary to demand Subjective: Nonverbal at baseline. Patient does not seem to be improving. Requiring 5LNC and frequent sunctioning Review of Systems Constitutional: Reports: see HPI. Objective Last 24 Hrs of Vital Signs/I&O Vital Signs Date Time Temp Pulse Resp B/P B/P Pulse O2 O2 Flow FiO2 Mean Ox Delivery Rate 02/23 0000 89 Nasal 6.0L Cannula 02/22 2327 100.0 02/22 2218 100.2 112 18 110/60 88 Nasal 6.0L Cannula 02/22 2201 90 Nasal 6.0L Cannula 02/22 2157 100.2 02/22 1600 100.8 02/22 1600 Nasal 4.5L Cannula 02/22 1554 100.8 02/22 1428 101.2 102 28 137/75 94 02/22 1414 101.2 02/22 1131 Nasal 4.0L Cannula 02/22 0800 Nasal 4.5L Cannula Intake & Output 02/23 0800 02/23 0000 02/22 1600 Intake Total 50 250 Output Total 225 210 300 Balance -225 -160 -50 Intake, IV 50 250 Intake, Oral 0 0 Output, Urine 225 210 300 Patient 180 lb Weight Physical Exam General Appearance: Alert, Cooperative, Unable to assess orientation HEENT: Mucoid eye secretions Cardiovascular: Regular Rate, Normal S1, Normal S2, No Murmurs Lungs: Bibasilar crackles Current Medications: Current Medications Sig/Nora Start time Last Medication Dose Route Stop Time Status Admin Acetaminophen 650 MG .STK-MED ONE 02/22 215 DC NV 02/22 215 Acetaminophen 650 MG Q4H PRN 02/21 2345 AC 02/22 NV 2157 Albuterol Sulfate 3 ML Q4P PRN 02/22 1130 AC INH Artificial Tears 2 GTT 4 TIMES/DAY 02/22 1000 AC 02/22 OPH 2120 Ceftazidime 1,000 MG Q24 02/22 1000 AC 02/22 IV 0904 Dextrose/Water 1,000 ML Q20H 02/22 1100 DC 02/22 IV 1220 Dextrose/Water 1,000 ML Q13H 02/22 0930 DC IV Glycopyrrolate 200 MCG ONE ONE 02/23 0030 DC 02/23 IV 02/23 0031 0036 Glycopyrrolate 200 MCG ONE ONE 02/22 1045 DC 02/22 IV 02/22 1046 1113 Ipratropium [place] 2.5 ML Q4 HRS NEEDED PRN 02/21 2345 AC INH Lactated Ringer's 1,000 ML ONCE ONE 02/21 2215 DC 02/22 IV 02/22 1134 0007 Morphine Sulfate 2 MG Q6-PRN PRN 02/22 0445 AC 02/22 IV 0545 Scopolamine HBr 1 PAT Q72H 02/22 1045 AC 02/22 TOP 1113 Vancomycin HCl 1,000 MG DAILY 02/22 1000 AC 02/22 Dextrose/Water 250 ML IV 0904 Last 24 Hrs of Lab/Jamie Results Last 24 Hrs of Labs/Mics: Microbiology 02/22 931 LOWER RESP: Respiratory Culture - COLB 02/22 931 LOWER RESP: Gram Stain - COLB Assessment/Plan Assessment: Mr. Rios is an 82-year-old male with a PMH significant for B-cell lymphoma , HTN, dementia, depression, anxiety, HLD, chest wall mass recently excised approximately 2 weeks ago with sutures still in place diagnosis unknown who was brought in by ambulance from [place] after being found to be febrile, hypotensive and nonresponsive. Problem list Sepsis secondary to urologic origin or possible pneumonia Elevated troponins, demand ischemia Hypernatremia, possibly secondary to volume depletion CHARISSE, likely prerenal azotemia Acute respiratory failure Plan: TRC nebs/PRN Comfort measures only Continue IV vancomycin and Ceftazidime Discontinue D5W IVF for hypernatremia Start Glycopyrolate for secretions DVT ppx: ALPS Problem List: 1. Hypernatremia 2. Sepsis Pain Ratin Pain Location: NA Pain Goal: Remain pain free Pain Plan: NA Tomorrow's Labs & Rationales: none Mehdi Gamboa MD 02/23/18 1044: Attending MD Review Statement Attending Statement Attending MD Statement: examined this patient, discuss w/resident/PA/MACHINERY DISMANTLER, agreed w/resident/PA/MACHINERY DISMANTLER, reviewed EMR data (avail) Attending Assessment/Plan: 82M PMH Dementia, major depression, HTN, diffuse B-cell lymphoma, non-verbal and bedbound at baseline, admitted with severe sepsis secondary to bilateral pneumonia and UTI, found to be severely dehydrated on admission. Goals of care discussion was had with family upon admission and decision was made for conservative management, with no invasive procedures or central lines, and to monitor progress. Patient is a bit more alert today. He is oliguric, remains afebrile, and has stable vitals. He has bibasilar crackles on lung exam, exam is otherwise benign. Blood cultures are growing S.aureus. 1. Severe sepsis secondary to bilateral lower lobe pneumonia 2. S.aureus bacteremia 3. Metabolic encephalopathy 4. Oliguria Plan - Continue on general medicine - Continue Vancomycin and Ceftazidime - Follow cultures - Will check labs today, but per family daily labs are not wanted - Hold IV fluids - Continue goals of care discussion with family - ALPS for DVT PPx
[2018-02-23 11:07] LABS: ABSOLUTE BASOPHIL COUNT 0 /CUMM (0.0-0.2); ABSOLUTE EOSINOPHIL COUNT 0 /CUMM (0.0-0.7); ABSOLUTE GRANULOCYTE CT 21.4 /CUMM (1.4-6.5); ABSOLUTE LYMPH COUNT 0.9 /CUMM (1.2-3.4); ABSOLUTE MONOCYTE COUNT 0.1 /CUMM (0.10-0.60); BASOPHIL % 0 % (0.0-2.0); EOSINOPHIL % 0 % (0-5); GRANULOCYTE % 95.5 % (42.2-75.2); MEAN CORPUSCULAR HGB 32.5 PG (27.0-31.0); MEAN CORPUSCULAR VOLUME 98.6 FL (80.0-94.0); MEAN PLATELET VOLUME 9.5 FL (7.4-10.4); PLATELET COUNT 188 /CUMM (130-400); RBC DISTRIBUTION WIDTH 16.8 % (11.5-14.5); RED BLOOD CELL CT 4.57 /CUMM (4.70-6.10); WHITE BLOOD CELL COUNT 22.4 /CUMM (4.8-10.8)
[2018-02-23 14:48] VITALS: BP 110/50
--- NOTE | 2018-02-23 17:56 | Event Note ---
Event Note Event Note: Spoke at length to patient's brother Xander ([phone]) about the goals of care. The family wishes to go for hospice care since there hasn't been significant improvement in the clinical status of the patient patient in the last 24 hours. Hospice nurse has been contacted. Antibiotics have been discontinued.
[2018-02-23 22:36] VITALS: BP 112/60
--- NOTE | 2018-02-24 06:59 | PN- Housestaff ---
See Addendum Subjective Follow-up For: Severe sepsis secondary to UTI and pneumonia Acute respiratory failure Hypernatremia, possibly secondary to volume depletion Acute kidney injury NSTEMI secondary to demand Subjective: Nonverbal at baseline patient seen and examined, current status is comfort measures only will be going for hospice evaluation Review of Systems Constitutional: Reports: see HPI. Objective Last 24 Hrs of Vital Signs/I&O Vital Signs Date Time Temp Pulse Resp B/P B/P Pulse O2 O2 Flow FiO2 Mean Ox Delivery Rate 02/24 0702 97.4 88 24 116/70 91 Nasal 6.0L Cannula 02/24 0000 Nasal 6.0L Cannula 02/23 2236 97.8 93 23 112/60 97 Nasal Cannula 02/23 1815 90 Nasal 6.0L Cannula 02/23 1615 99.8 02/23 1600 Nasal 6.0L Cannula 02/23 1517 101.0 02/23 1448 101.0 79 22 110/50 92 02/23 1308 92 Nasal 6.0L Cannula Intake & Output 02/24 0800 02/24 0000 02/23 1600 Intake Total 0 150 Output Total 150 350 Balance -150 -350 150 Intake, IV 150 Intake, Oral 0 Output, Urine 150 350 Patient 160 lb Weight Physical Exam General Appearance: uable to assess orientation Other Physical Findings: HEENT: Mucoid eye secretions Cardiovascular: Regular Rate, Normal S1, Normal S2, No Murmurs Lungs: Bibasilar crackles Current Medications: Current Medications Sig/Nora Start time Last Medication Dose Route Stop Time Status Admin Acetaminophen 650 MG .STK-MED ONE 02/23 1451 DC GA 02/23 1452 Acetaminophen 650 MG Q4H PRN 02/21 2345 AC 02/23 GA 1517 Albuterol Sulfate 3 ML Q4P PRN 02/22 1130 AC INH Artificial Tears 2 GTT 4 TIMES/DAY 02/22 1000 AC 02/23 OPH 2200 Ceftazidime 1,000 MG Q24 02/22 1000 DC 02/23 IV 0938 Dextrose/Water 1,000 ML Q13H 02/23 1400 DC 02/23 IV 1415 Furosemide 20 MG ONCE ONE 02/23 0945 CAN IV PUSH 02/23 0946 Glycopyrrolate 200 MCG ONE ONE 02/23 1800 CAN IV 02/23 1801 Glycopyrrolate 200 MCG Q4 PRN 02/23 1800 AC 02/23 SC 2159 Glycopyrrolate 200 MCG TIDPRN PRN 02/23 0945 DC 02/23 IV 1137 Ipratropium [place] 2.5 ML Q4 HRS NEEDED PRN 02/21 2345 AC INH Morphine Sulfate 4 MG Q4P PRN 02/24 0515 AC 02/24 IV 0510 Morphine Sulfate 4 MG Q4P PRN 02/23 1800 DC SC Morphine Sulfate 2 MG Q6-PRN PRN 02/22 0445 DC 02/23 IV 1145 Potassium Chloride 20 MEQ ONCE ONE 02/23 1700 DC PO 02/23 1701 Scopolamine HBr 1 PAT Q72H 02/22 1045 AC 02/22 TOP 1113 Vancomycin HCl 1,000 MG DAILY 02/22 1000 DC 02/23 Dextrose/Water 250 ML IV 0938 Last 24 Hrs of Lab/Jamie Results Last 24 Hrs of Labs/Mics: Laboratory Tests 02/23/18 1020: Anion Gap 13, Estimated GFR 58 L, BUN/Creatinine Ratio 30.0 H, CBC w Diff MAN DIFF ORDERED, RBC 4.57 L, MCV 98.6 H, MCH 32.5 H, MCHC 33.0, RDW 16.8 H, MPV 9.5, Gran % 95.5 H, Lymphocytes % 4.1 L, Monocytes % 0.4 L, Eosinophils % 0, Basophils % 0, Absolute Granulocytes 21.4 H, Segmented Neutrophils 87 H, Band Neutrophils 5, Absolute Lymphocytes 0.9 L, Lymphocytes 8 L, Absolute Monocytes 0.1, Absolute Eosinophils 0, Absolute Basophils 0, Platelet Estimate ADEQUATE, Normocytic RBCs VERIFIED, Normochromic RBCs VERIFIED Assessment/Plan Assessment: Mr. Rios is an 82-year-old male with a PMH significant for B-cell lymphoma , HTN, dementia, depression, anxiety, HLD, chest wall mass recently excised approximately 2 weeks ago with sutures still in place diagnosis unknown who was brought in by ambulance from [place] after being found to be febrile, hypotensive and nonresponsive. Problem list Sepsis secondary to urologic origin or possible pneumonia Elevated troponins, demand ischemia Hypernatremia, possibly secondary to volume depletion CHARISES, likely prerenal azotemia Acute respiratory failure Plan: Hospice evaluation planned for today TRC nebs/PRN Comfort measures only Continue IV vancomycin and Ceftazidime Discontinue D5W IVF for hypernatremia Start Glycopyrolate for secretions DVT ppx: ALPS Problem List: 1. Hypernatremia Pain Ratin Pain Location: n/a Pain Goal: Remain pain free Pain Plan: prn Tomorrow's Labs & Rationales: none
[2018-02-24 07:02] VITALS: BP 116/70
[2018-02-24 14:50] VITALS: BP 100/60
[2018-02-24 21:40] VITALS: BP 118/70
[2018-02-25 06:34] VITALS: BP 120/70
--- NOTE | 2018-02-25 08:23 | PN- Housestaff ---
See Addendum Subjective Follow-up For: Severe sepsis secondary to UTI and pneumonia Acute respiratory failure Hypernatremia, possibly secondary to volume depletion Acute kidney injury NSTEMI secondary to demand Subjective: Nonverbal at baseline. Comfort measures only, hospice approval pending Review of Systems Constitutional: Reports: see HPI. Objective Last 24 Hrs of Vital Signs/I&O Vital Signs Date Time Temp Pulse Resp B/P B/P Pulse O2 O2 Flow FiO2 Mean Ox Delivery Rate 02/25 08 Nasal 6.0L Cannula 02/25 0634 98.0 90 16 120/70 91 Nasal 6.0L Cannula 02/25 0000 Nasal 6.0L Cannula 02/24 2140 99.0 100 20 118/70 92 02/24 1450 99.1 101 24 100/60 92 02/24 1209 Nasal 6.0L Cannula Intake & Output 02/25 1600 02/25 0800 02/25 0000 Intake Total 0 0 Output Total 500 250 Balance -500 -250 Intake, IV Intake, Oral 0 0 Number 0 Bowel Movements Output, Urine 500 250 Patient 158 lb Weight Weight Bed scale Measurement Method Physical Exam General Appearance: Alert, Cooperative Cardiovascular: Regular Rate, Normal S1, Normal S2, No Murmurs Lungs: Bibasilar crackles Abdomen: Normal Bowel Sounds, Soft, No Tenderness Current Medications: Current Medications Sig/Nora Start time Last Medication Dose Route Stop Time Status Admin Acetaminophen 650 MG Q4H PRN 02/21 2345 AC 02/23 [place] 1517 Albuterol Sulfate 3 ML Q4P PRN 02/22 1130 AC INH Artificial Tears 2 GTT 4 TIMES/DAY 02/22 1000 AC 02/25 OPH 0801 Glycopyrrolate 200 MCG Q4 PRN 02/23 1800 AC 02/23 SC 2159 Ipratropium [place] 2.5 ML Q4 HRS NEEDED PRN 02/21 2345 AC INH Morphine Sulfate 4 MG Q4P PRN 02/25 0130 AC 02/25 SC 0118 Morphine Sulfate 4 MG Q4P PRN 02/24 0515 DC 02/24 IV 1847 Scopolamine HBr 1 PAT Q72H 02/22 1045 AC 02/25 TOP 0801 Assessment/Plan Assessment: Mr. Rios is an 82-year-old male with a PMH significant for B-cell lymphoma , HTN, dementia, depression, anxiety, HLD, chest wall mass recently excised approximately 2 weeks ago with sutures still in place diagnosis unknown who was brought in by ambulance from [place] after being found to be febrile, hypotensive and nonresponsive. Problem list Sepsis secondary to urologic origin or possible pneumonia Elevated troponins, demand ischemia Hypernatremia, possibly secondary to volume depletion CHARISSE, likely prerenal azotemia Acute respiratory failure Plan: Hospice pending insurance approval TRC nebs/PRN Morphine PRN Comfort measures only Continue Glycopyrolate for secretions Blood cultures grew Staph, Urine cultures grew E.Coli, recently on Vanc and Ceftaz Problem List: 1. UTI (urinary tract infection) 2. Pneumonia 3. Sepsis Pain Ratin Pain Location: NA Pain Goal: Remain pain free Pain Plan: NA Tomorrow's Labs & Rationales: none
== END 2018-02-25 14:26 | disposition hospice, home (50) | DRG 871 ==
LOC: ERH 17:16 → 2NA 19:42 → ERHI 19:42 → ENRESERV 21:25 → ENTRNSPT 22:12 → 2NA 22:23 → EDTRNSPT 22:27 → EDTRNSPTSTS 22:27 → CMPTRNSPT 22:46 → 2NA 02-22 09:50
PROVIDERS: Emergency Medicine; Student in an Organized Health Care Education/Training Program
DX: A41.9 Sepsis, unspecified organism (principal); I21.A1 Myocardial infarction type 2; J96.01 Acute respiratory failure with hypoxia; G93.41 Metabolic encephalopathy; J18.9 Pneumonia, unspecified organism; N17.9 Acute kidney failure, unspecified; E87.2 Acidosis; N39.0 Urinary tract infection, site not specified; E87.0 Hyperosmolality and hypernatremia; R34 Anuria and oliguria; Z51.5 Encounter for palliative care; F03.90 Unspecified dementia, unspecified severity, without behavioral disturbance, psychotic disturbance, mood disturbance, and anxiety; E78.5 Hyperlipidemia, unspecified; F32.9 Major depressive disorder, single episode, unspecified; N20.0 Calculus of kidney; F41.9 Anxiety disorder, unspecified; K59.00 Constipation, unspecified; R65.20 Severe sepsis without septic shock; I10 Essential (primary) hypertension; Z85.72 Personal history of non-Hodgkin lymphomas; Z98.890 Other specified postprocedural states; Z88.8 Allergy status to other drugs, medicaments and biological substances
CPT/HCPCS: 2NASP; 87184; 36415; 71045; 74176; 81001; 82436; 87040; 87070; 87086; 87147; 93005; 93010; 94799; 96360; 96361; 96365; 96375; 99291; J0713; J3370; J7060

== ENCOUNTER 2018-02-25 14:27 | Inpatient (IN) | payer OTHER ==
[~2018-02-25 14:27] MED LIST: ACEPHEN650 M1 PR; ACETAMINOPHEN325 M2 PO; ACETAMINOPHEN500 M4 PO; AMLODIPINE BESYL5 M1 PO; ARTIFICIAL TEAR15 M8 OU; ASPIRIN EC81 M1 PO; BISACODYL10 M1 RC; COLACE100 M1 PO; FLEET ENEMA133 ML RC; IPRAT-ALBUT 0.5-3 ML INH; LACTULOSE10 GM/152 PO; LEXAPRO10 M1 PO; LEXAPRO5 M1 PO; LIQUITUSS200 MG/5 M PO; LISINOPRIL10 M1 PO; MILK OF MA400 MG/52 PO; MULTIVITAMINS1 EAC9 PO; VITAMIN D250000 UNIT PO; ZOCOR10 M1 PO
[2018-02-26 06:20] VITALS: BP 118/60
--- NOTE | 2018-02-26 13:46 | History & Physical ---
General Information and HPI Chief Complaint: admit to hospice Source of Information: old records Exam Limitations: unable to give history Associated Symptoms: dyspnea, secretions History of Present Illness: Mr. Rios is an 82-year-old male with a PMH significant for B-cell lymphoma , HTN, dementia, depression, anxiety, HLD, chest wall mass recently excised approximately 2 weeks ago with sutures still in place, positive for invasive moderately differentiated squamous cell carcinoma, who was brought in by ambulance from [facility] after being found to be febrile, hypotensive and nonresponsive. He had been treated for pneumonia at [place] within the previous week. Here he was treated for sepsis with vancomycin and ceftazidime as urine grew E. coli and blood cultures Staph aureus. He was also treated for hypernatremia, CHARISSE, elevated troponins, acute respiratory failure. He has failed to improve with treatments and prognosis is poor. His brother/POA made decision for hospice care. Pt is nonverbal but opens eyes to verbal stimuli. He appears comfortable. He received morphine x 2 today with good effect for dyspnea. he also received Robinul x 1 with good effect for secretions. Allergies/Medications Allergies: Coded Allergies: hydrochlorothiazide (UNKNOWN REACTION - PER 02/21/18) Past History Medical History Neurological: dementia Cardiovascular: hypertension, hyperlipidemia Gastrointestinal: constipation Psychiatric: depression Cancer(s): SQUAMOUS CELL B cell lymphoma History of MRSA: No History of VRE: No History of CDIFF: No Isolation History: Standard Tetanus Vaccine: 11/21/15 Surgical History Surgical History: N Past Family/Social History Family History: unknown Psychosocial History: unknown Functional Ability: dependent for ADLs/IADLs Review of Systems Review of Systems Constitutional: Reports: see HPI. Exam & Diagnostic Data Last 24 Hrs of Vital Signs/I&O Vital Signs Date Time Temp Pulse Resp B/P B/P Pulse O2 O2 Flow FiO2 Mean Ox Delivery Rate 02/26 0800 Nasal 6.0L Cannula 02/26 0620 98.5 90 22 118/60 90 Nasal Cannula 02/26 0000 Nasal 6.0L Cannula 02/25 1600 Nasal 6.0L Cannula Intake & Output 02/26 1600 02/26 0800 02/26 0000 Intake Total 0 0 Output Total 150 200 150 Balance -150 -200 -150 Intake, Oral 0 0 Number 0 Bowel Movements Output, Urine 150 200 150 Physical Exam General Appearance No Acute Distress Skin warm and dry HEENT Atraumatic, oral mucosa dry Cardiovascular Regular Rate, Normal S1, Normal S2, No Murmurs Lungs unlabored, RR 16, no tracheal secretions Abdomen Soft, No Tenderness Extremities mild mottling to bilat feet Reproductive (MALE) herr catheter with yellow urine Last 24 Hrs of Labs/Jamie: cbc 02/23/18 with wbc 22.4, h/h 14.8/45, plt 188, gran % 95.5 chem with Na 161, K 3.2, Cl 127, co2 21, Bun 36, Cr 1.2, lactic acid 2.2 trop 0.69 02/21/18: blood cx with staph aureus urine with e.coli Diagnostic Data CXR Results 02/21/18 IMPRESSION: No active chest disease. Other Results 02/21/18 CT abd&pelvis:IMPRESSION: Bibasilar extensive pneumonitis partially imaged. Nonobstructing bilateral renal calculi. High density metallic focus within the cecum as above. Correlate with surgical history. Multiple lesions within both renal cortices some which may be cystic. Recommend elective ultrasound. Assessment/Plan Assessment: Mr. 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 Aureus sepsis, E. Coli UTI, acute respiratory failure, CHARISSE. Plan: Medication orders placed yesterday by med staff per CT hospice registered nurse recommendations for: Morphine 4mg IV/SC q2hrs as needed for dyspnea/pain Ativan 0.5mg IV/SC q4hrs as needed for anxiety Scopolamine 2 patches placed for secretions and Robinul 200 mcg every 4 hrs as needed.
[2018-02-27 06:49] VITALS: BP 103/65
--- NOTE | 2018-02-27 16:13 | PN- Hospice ---
Subjective Subjective: Notified earlier today pt. with worsening dyspnea and increased secretions. Robinul increased to 400mcg and sheduled every 4 hrs, morphine scheduled 4 mg every 4 hours and as needed dosing every hour. Minimal urine output. Pt. is unresponsive. Now febrile to 103. Review of Systems Constitutional: Reports: see HPI. Objective Last 24 Hrs of Vital Signs/I&O Vital Signs Date Time Temp Pulse Resp B/P B/P Pulse O2 O2 Flow FiO2 Mean Ox Delivery Rate 02/27 1446 102.3 02/27 1357 103.7 02/27 0800 Nasal 6.0L Cannula 02/27 0649 98.3 109 24 103/65 83 Nasal 6.0L Cannula 02/27 0000 Nasal 6.0L Cannula Intake & Output 02/27 1600 02/27 0802/27 0000 Intake Total 0 0 Output Total 125 100 Balance -125 0 -100 Intake, Oral 0 0 Output, Urine 125 100 Physical Exam General Appearance: sedated, mildly dyspneic Head: atraumatic Respiratory: audible tracheal secretions Cardiovascular: tachycardia Extremities: mottling of bilat. feet Current Medications: Current Medications Sig/Nora Start time Last Medication Dose Route Stop Time Status Admin Acetaminophen 650 MG Q4P PRN 02/25 1545 AC 02/27 SD 1357 Artificial Tears 2 GTT Q2-3 HRS NEEDED.. 02/25 1545 AC 02/27 OPH 0942 Bisacodyl 10 MG DAILY PRN 02/25 1545 AC SD Glycerin/Mineral Oil 1 ELISEO Q SHIFT 02/26 0700 AC 02/27 TOP 0942 Glycopyrrolate 400 MCG Q4 02/27 1400 AC 02/27 SC 1332 Glycopyrrolate 200 MCG Q4-PRN PRN 02/25 1545 DC 02/27 SC 0942 Glycopyrrolate 200 MCG Q4-PRN PRN 02/25 1545 DC IV Lorazepam 0.5 MG Q4P PRN 02/26 1415 AC 02/27 SC 1333 Morphine Sulfate 4 MG Q4 02/27 1000 AC 02/27 IV 1333 Morphine Sulfate 4 MG Q1P PRN 02/27 1000 AC 02/27 SC 1052 Morphine Sulfate 4 MG Q2 HRS NEEDED PRN 02/25 1545 DC 02/27 SC 0817 Morphine Sulfate 4 MG Q2 HRS NEEDED PRN 02/25 1530 DC IV Scopolamine HBr 2 PAT Q72 02/28 1000 AC TOP Assessment/Plan Hospice Assessment/Recommendations: Mr. 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 Aureus sepsis, E. Coli UTI, acute respiratory failure, CHARISSE. Pt. actively dying. For: Dyspnea-give morphine Fever-Schedule APAP every 4 hours Problem List: 1. Sepsis 2. UTI (urinary tract infection) 3. CHARISSE (acute kidney injury)
--- NOTE | 2018-02-28 13:40 | Discharge Summary ---
Visit Information Visit Dates Admission Date: 02/25/18 Discharge Date: 02/27/18 Hospital Course Course Attending Physician: Mehdi Gamboa MD Primary Care Physician: El[facility] Course: Mr. 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 Aureus sepsis, E. Coli UTI, acute respiratory failure, CHARISSE. He was treated with morphine for dyspnea and pain, ativan for anxiety, scopolamine and Robinul for secretions and Tylenol for fever , until he peacefully. Allergies: Coded Allergies: hydrochlorothiazide (UNKNOWN REACTION - PER 02/21/18) Disposition Summary Disposition Principal Diagnosis: Sepsis, Staphylococcus Aureus Urinary tract infection, Escherichia Coli Acute kidney injury Acute respiratory Failure Additional Diagnosis: Squamous cell carcinoma B-cell lymphoma Discharge Disposition: Discharge Instructions General Discharge Information Code Status: Hospice Patient's Diet: N/A Patient's Activity: N/A Follow-Up Instructions/Appts: N/A Copies To: Elsie TIERNEY,Nelly
== END 2018-02-27 22:02 | disposition hospice, home (50) | DRG 871 ==
LOC: 2NA 14:27
DX: A41.01 Sepsis due to Methicillin susceptible Staphylococcus aureus (principal); J96.01 Acute respiratory failure with hypoxia; G93.41 Metabolic encephalopathy; J18.9 Pneumonia, unspecified organism; N17.9 Acute kidney failure, unspecified; N39.0 Urinary tract infection, site not specified; E87.0 Hyperosmolality and hypernatremia; B96.20 Unspecified Escherichia coli [E. coli] as the cause of diseases classified elsewhere; C76.1 Malignant neoplasm of thorax; E87.1 Hypo-osmolality and hyponatremia; E87.2 Acidosis; I24.8 Other forms of acute ischemic heart disease; Z51.5 Encounter for palliative care; F03.90 Unspecified dementia, unspecified severity, without behavioral disturbance, psychotic disturbance, mood disturbance, and anxiety; E78.5 Hyperlipidemia, unspecified; F32.9 Major depressive disorder, single episode, unspecified; I10 Essential (primary) hypertension; F41.9 Anxiety disorder, unspecified; Z88.8 Allergy status to other drugs, medicaments and biological substances; Z79.82 Long term (current) use of aspirin; K59.00 Constipation, unspecified; Z85.828 Personal history of other malignant neoplasm of skin; Z85.72 Personal history of non-Hodgkin lymphomas; Z66 Do not resuscitate
CPT/HCPCS: 2NASP